=== PATIENT | female | born 1975 | race Caucasian/White ===

== ENCOUNTER 2018-10-20 15:34 | Outpatient (CLI) | payer OTHER ==
[2018-10-20 15:51] LABS: HGB - HEMOGLOBIN 11.6 g/dL (12.0-16.0); MEAN CORPUSCULAR HEMOGLOBIN 32.9 pg (27.0-31.0); MEAN CORPUSCULAR HGB CONC 34.5 g/dL (32.0-36.0); MEAN CORPUSCULAR VOLUME 95.4 fL (81.0-99.0); MEAN PLATELET VOLUME 6.6 fL (7.9-10.8); NEUTROPHILS # (AUTO) 1.7 10^3/uL (1.5-6.6); NEUTROPHILS % (AUTO) 41.6 %; RED BLOOD COUNT 3.51 10^6/uL (4.20-5.40); RED CELL DISTRIBUTION WIDTH 14.3 % (12.0-15.0)
== END 2018-10-20 15:35 | disposition home or self-care (01) ==
LOC: LAB 15:34
DX: D70.9 Neutropenia, unspecified (principal)
CPT/HCPCS: 36415; 85027

== ENCOUNTER 2021-06-13 08:00 | Outpatient (CLI) | payer OTHER ==
[2021-06-13 18:29] LABS: BASOPHILS % (AUTO) 0.3 %; EOSINOPHILS % (AUTO) 0.3 %; HCT - HEMATOCRIT 33.5 % (37.0-47.0); HGB - HEMOGLOBIN 10.9 g/dL (12.0-16.0); LYMPHOCYTES # (AUTO) 0.7 10^3/uL (1.5-3.5); LYMPHOCYTES % (AUTO) 18.3 %; MEAN CORPUSCULAR HEMOGLOBIN 34.4 pg (27.0-31.0); MEAN CORPUSCULAR HGB CONC 32.5 g/dL (32.0-36.0); MEAN CORPUSCULAR VOLUME 105.7 fL (81.0-99.0); MONOCYTES # (AUTO) 0.2 10^3/uL (0.0-1.0); MONOCYTES % (AUTO) 6.4 %; NEUTROPHILS # (AUTO) 2.7 10^3/uL (1.5-6.6); NEUTROPHILS % (AUTO) 73.9 %; PLT - PLATELET COUNT 219 10^3/uL (130-450); RED BLOOD COUNT 3.17 10^6/uL (4.20-5.40); RED CELL DISTRIBUTION WIDTH 14.2 % (12.0-15.0); WHITE BLOOD COUNT 3.6 x10^3/uL (4.8-10.8)
[2021-06-13 18:40] LABS: ALBUMIN 4.2 g/dL (3.2-5.5); ALBUMIN/GLOBULIN RATIO 1.2 (1.0-2.2); CALCIUM 9.4 mg/dL (8.5-10.3); CREATININE 0.8 mg/dL (0.4-1.0); POTASSIUM 3.5 mmol/L (3.5-5.0); TOTAL PROTEIN 7.8 g/dL (6.7-8.2)
[2021-06-13 20:44] LABS: SLIDE REVIEW? Indicated
[2021-06-13 20:46] LABS: PLATELET ESTIMATE, MANUAL NORMAL (130-450,000) (NORMAL); PLATELET MORPHOLOGY NORMAL APPEARANCE (NORMAL); RBC MORPHOLOGY (MULTIPLE) 1+ ANISOCYTOSIS (NORMAL)
== END 2021-06-13 23:59 | disposition home or self-care (01) ==
LOC: LAB.N 08:00
PROVIDERS: ATTEND Family Medicine
DX: R30.0 Dysuria (principal); C50.919 Malignant neoplasm of unspecified site of unspecified female breast
CPT/HCPCS: 36415; 80053; 85025; 87077; 87086; 87181

== ENCOUNTER 2022-01-24 14:32 | Outpatient (CLI) | payer OTHER | END 2022-01-24 14:33 | disposition home or self-care (01) | LOC: LAB.N 14:32 | PROVIDERS: ATTEND Internal Medicine Hematology & Oncology | DX: N39.0 Urinary tract infection, site not specified (principal) | CPT/HCPCS: 87077; 87086; 87181 ==

== ENCOUNTER 2022-02-21 14:43 | Outpatient (CLI) | payer OTHER | END 2022-02-21 14:44 | disposition home or self-care (01) | LOC: LAB.N 14:43 | DX: Z01.812 Encounter for preprocedural laboratory examination (principal); N13.30 Unspecified hydronephrosis; Z20.822 Contact with and (suspected) exposure to COVID-19 ==

== ENCOUNTER 2022-03-23 15:17 | Emergency (ER) | payer OTHER ==
[2022-03-23 15:31] VITALS: BP 148/99
--- NOTE | 2022-03-23 15:50 | ED Physician Documentation ---
History of Present Illness - Stated complaint Stated Complaint: NEED NEPHROSTOMY BAG - Chief complaint Chief Complaint: General - History obtained from History obtained from: Patient - History of Present Illness Timing: Today Pain level max: 0 Pain level now: 0 - Additonal information Additional information: 46-year-old female with a history of breast cancer, has a nephrostomy tube on the right side. The nephrostomy bag is leaking today. They need a new bag placed. No fevers. No chills. No other symptoms. Review of Systems Constitutional: denies: Fever PD PAST MEDICAL HISTORY - Past Medical History Past Medical History: Yes Other Past Medical History: Breast cancer - Past Surgical History Past Surgical History: Yes Other past surgical history: Nephrostomy tube - Allergies Allergies/Adverse Reactions: Allergies Allergy/AdvReac Type Severity Reaction Status Date / Time chlorhexidine Allergy Rash Verified 03/23/22 15:32 - Living Situation Living Situation: reports: With family Living Arrangement: reports: At home - Family History Family history: reports: Non contributory PD ED PE NORMAL - Vitals Vital signs reviewed: Yes - General General: Alert and oriented X 3, No acute distress - HEENT HEENT: Moist mucous membranes - Neck Neck: Supple, no meningeal sign - Cardiac Cardiac: RRR - Respiratory Respiratory: No respiratory distress, Clear bilaterally - Abdomen Abdomen: Soft, Non tender, Non distended, Other (No signs of infection around the nephrostomy tube) - Derm Derm: Warm and dry - Neuro Neuro: Alert and oriented X 3 - Psych Psych: Normal mood, Normal affect Results - Vitals Vitals: Vital Signs - 24 hr 03/23/22 15:26 Temperature 36.1 C L Heart Rate 93 Respiratory 16 Rate Blood Pressure 148/99 H O2 Saturation 100 Oxygen O2 Source Room air PD MEDICAL DECISION MAKING - ED course Complexity details: considered differential, d/w patient, d/w family ED course: Nephrostomy tube bag was changed. No complications. This document was made in part using voice recognition software. While efforts are made to proofread this document, sound alike and grammatical errors may occur. Departure - Departure Disposition: 01 Home, Self Care Clinical Impression: Leakage of nephrostomy catheter, initial encounter Condition: Good Follow-Up: your,doctor as needed [Other] Comments: Please follow-up with your doctor for further care. Discharge Date/Time: 03/23/22 15:58
== END 2022-03-23 15:58 | disposition home or self-care (01) ==
LOC: ED 15:17
DX: T83.032A Leakage of nephrostomy catheter, initial encounter (principal); R39.9 Unspecified symptoms and signs involving the genitourinary system
CPT/HCPCS: 81001; 87086; 99281; 99282

== ENCOUNTER 2022-10-19 14:40 | Emergency (ER) | payer OTHER ==
[2022-10-19 15:20] LABS: BASOPHILS % (AUTO) 0.3 %; EOSINOPHILS # (AUTO) 0.1 10^3/uL (0.0-0.7); EOSINOPHILS % (AUTO) 1.1 %; HGB - HEMOGLOBIN 12.4 g/dL (12.0-16.0); LYMPHOCYTES # (AUTO) 0.6 10^3/uL (1.5-3.5); LYMPHOCYTES % (AUTO) 5.9 %; MEAN CORPUSCULAR HEMOGLOBIN 32.1 pg (27.0-31.0); MEAN CORPUSCULAR HGB CONC 32.6 g/dL (32.0-36.0); MEAN CORPUSCULAR VOLUME 98.4 fL (81.0-99.0); MEAN PLATELET VOLUME 9.3 fL (7.9-10.8); MONOCYTES # (AUTO) 0.7 10^3/uL (0.0-1.0); MONOCYTES % (AUTO) 6.8 %; NEUTROPHILS # (AUTO) 9.2 10^3/uL (1.5-6.6); NEUTROPHILS % (AUTO) 85.6 %; PLT - PLATELET COUNT 256 10^3/uL (130-450); RED BLOOD COUNT 3.86 10^6/uL (4.20-5.40); RED CELL DISTRIBUTION WIDTH 13.5 % (12.0-15.0); WHITE BLOOD COUNT 10.7 x10^3/uL (4.8-10.8)
[2022-10-19 15:31] LABS: ALBUMIN 3.7 g/dL (3.2-5.5); ALBUMIN/GLOBULIN RATIO 0.9 (1.0-2.2); BILIRUBIN,TOTAL 0.8 mg/dL (0.2-1.0); CREATININE 1.5 mg/dL (0.4-1.0); POTASSIUM 3.7 mmol/L (3.5-5.0)
[2022-10-19 16:02] LABS: BILIRUBIN,URINE NEGATIVE (NEGATIVE); GLUCOSE, URINE (UA) NEGATIVE (NEGATIVE); KETONES,URINE (UA) NEGATIVE (NEGATIVE); LEUKOCYTE ESTERASE, URINE MODERATE (NEGATIVE); NITRITE,URINE NEGATIVE (NEGATIVE); OCCULT BLOOD,URINE MODERATE (NEGATIVE); PROTEIN,URINE 30 mg/dL (NEGATIVE); UROBILINOGEN,URINE 0.2 (NORMAL) E.U./dL (NORMAL)
[2022-10-19 16:04] LABS: CLARITY,URINE HAZY (CLEAR); HCG UR QUAL NEGATIVE
[2022-10-19 16:08] LABS: BACTERIA,URINE Few /HPF (None Seen); SQUAMOUS EPITHELIAL CELL,UR FEW Squamous (<= Few); WBC,URINE >25 /HPF (0-5)
[2022-10-19] MEDS ORDERED: SODIUM CHLORIDE 0.9% 1,000 ML IV STA ×2 (17:25→18:52)
--- NOTE | 2022-10-19 17:48 | ED Physician Documentation ---
History of Present Illness - Stated complaint Stated Complaint: BACK PX - Chief complaint Chief Complaint: Abd Pain - Additonal information Additional information: 47-year-old female presents to the emergency department for evaluation of gina ateral flank pain fevers and dysuria. Symptoms began about 5 days ago. She does have a history of breast cancer. She is on oral chemotherapy. 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 Patient states she has had a temperature of 102.6 She reports that her most recent ureter stents were really placed about 2 weeks ago. She is followed by Dr. Barrie Rosas urologist in [place]. Patient is historian. Reliable historian. Review of Systems Constitutional: reports: Fever GI: reports: Abdominal Pain, Nausea, Vomiting, Diarrhea : reports: Dysuria PD PAST MEDICAL HISTORY - Past Surgical History Past Surgical History: Yes - Present Medications Home Medications: Ambulatory Orders Medication Instructions Recorded Confirmed Ciprofloxacin HCl [Cipro] 500 mg PO BID #20 tablet 04/30/22 - Allergies Allergies/Adverse Reactions: Allergies Allergy/AdvReac Type Severity Reaction Status Date / Time chlorhexidine Allergy Rash Verified 10/19/22 15:01 - Social History Does the pt smoke?: No Smoking Status: Never smoker Does the pt drink ETOH?: No Does the pt have substance abuse?: No - Immunizations Immunizations are current?: Yes - POLST Patient has POLST: No PD ED PE NORMAL - General General: Alert and oriented X 3, No acute distress, Well developed/nourished - HEENT HEENT: Atraumatic, Moist mucous membranes - Neck Neck: Supple, no meningeal sign, No adenopathy - Cardiac Cardiac: RRR, No murmur - Respiratory Respiratory: No respiratory distress, Clear bilaterally - Abdomen Abdomen: Normal bowel sounds, Soft, Non tender (Bilateral flank tenderness without guarding or rebound) - Back Back: No CVA TTP, No spinal TTP - Derm Derm: Normal color, Warm and dry, No rash - Extremities Extremities: No deformity, No tenderness to palpate - Neuro Neuro: Alert and oriented X 3, cloth pattern maker 2-12 intact Eye Opening: Spontaneous Motor: Obeys Commands Verbal: Oriented GCS Score: 15 Results - Vitals Vitals: Vital Signs - 24 hr 10/19/22 10/19/2223 15:00 17:43 18:48 Temperature 37.7 C 38.9 C H Heart Rate 84 80 100 Respiratory 16 20 24 Rate Blood Pressure 131/83 H 160/100 H O2 Saturation 96 100 100 10/19/22 19:16 Temperature 38.1 C H Heart Rate Respiratory Rate Blood Pressure O2 Saturation Oxygen O2 Source Room air - Labs Labs: Laboratory Tests 10/19/22 10/19/22 10/19/22 15:13 15:13 15:20 WBC 10.7 RBC 3.86 L Hgb 12.4 Hct 38.0 MCV 98.4 MCH 32.1 H MCHC 32.6 RDW 13.5 Plt Count 256 MPV 9.3 Neut # (Auto) 9.2 H Lymph # (Auto) 0.6 L Davidson # (Auto) 0.7 Eos # (Auto) 0.1 Baso # (Auto) 0.0 Absolute Nucleated RBC 0.00 Nucleated RBC % 0.0 Sodium 134 L Potassium 3.7 Chloride 101 Carbon Dioxide 22 Anion Gap 11.0 BUN 26 H Creatinine 1.5 H Estimated GFR (MDRD) 38 L Glucose 115 H Lactic Acid Calcium 9.0 Total Bilirubin 0.8 AST 66 H ALT 40 Alkaline Phosphatase 180 H Total Protein 8.0 Albumin 3.7 Globulin 4.3 H Albumin/Globulin Ratio 0.9 L Lipase 31 Urine Color YELLOW Urine Clarity HAZY Urine pH 6.0 Ur Specific [place] 1.010 Urine Protein 30 H Urine Glucose (UA) NEGATIVE Urine Ketones NEGATIVE Urine Occult Blood MODERATE H Urine Nitrite NEGATIVE Urine Bilirubin NEGATIVE Urine Urobilinogen 0.2 (NORMAL) Ur Leukocyte Esterase MODERATE H Urine RBC 6-10 H Urine WBC >25 H Ur Squamous Epith Cells FEW Squamous Urine Bacteria Few Ur Microscopic Review INDICATED Urine Culture Comments INDICATED Urine HCG, Qual NEGATIVE SARS-CoV-2 (PCR) 10/19/22 10/19/22 18:06 19:08 WBC RBC Hgb Hct MCV MCH MCHC RDW Plt Count MPV Neut # (Auto) Lymph # (Auto) Davidson # (Auto) Eos # (Auto) Baso # (Auto) Absolute Nucleated RBC Nucleated RBC % Sodium Potassium Chloride Carbon Dioxide Anion Gap BUN Creatinine Estimated GFR (MDRD) Glucose Lactic Acid 1.8 Calcium Total Bilirubin AST ALT Alkaline Phosphatase Total Protein Albumin Globulin Albumin/Globulin Ratio Lipase Urine Color Urine Clarity Urine pH Ur Specific [place] Urine Protein Urine Glucose (UA) Urine Ketones Urine Occult Blood Urine Nitrite Urine Bilirubin Urine Urobilinogen Ur Leukocyte Esterase Urine RBC Urine WBC Ur Squamous Epith Cells Urine Bacteria Ur Microscopic Review Urine Culture Comments Urine HCG, Qual SARS-CoV-2 (PCR) NOT DETECTED - Rads (name of study) cxr Radiology: Final report received (No acute cardiopulmonary process) CT abd w/o Radiology: Final report received (Bilateral ureterovesicular stents are present. Left parapelvic cysts with appearance of mild obstruction. Right kidney demonstrates edema with poor visualization collecting system. Although no gross hydronephrosis is present) PD Medical Decision Making - ED course Complexity details: reviewed results, re-evaluated patient, considered differential, d/w patient ED course: 47-year-old female presents the emergency department for evaluation of 4 to 5 days subjective fevers, dysuria and flank pain. She does have a history of breast cancer with metastasis which subsequently resulted in bilateral ureter obstruction. Subsequently she has required bilateral ureterovesicular stenting through urology in [place]. The stents were recently replaced about 2 weeks ago. On presentation to the emergency department she is modestly afebrile. She has a heart rate of 100 but no hypotension. I did obtain a CBC and electrolytes. There is no leukocytosis. Lactate is not elevated at 1.8. We do note a rise in her BUN and creatinine to 26 and 1.5 compared to 9 and 0.9 in April of this last year. Her urinalysis is consistent with acute infection. Given this I did obtain a CT of the abdomen to evaluate for obstruction. The rise in her BUN and creatinine May be prerenal due to vomiting and diarrhea but could also be postobstructive given recent ureter replacements and stenting. Subsequently the CT shows bilateral ureterovesicular stents that are present. There is no gross hydronephrosis seen in the kidneys. Given the fever and concerns for infection chest x-ray and blood cultures were obtained and are pending. Though per my interpretation of the chest x-ray no acute focal processes. I did administer 2 g of ceftriaxone IV. I also subsequently spoke with the patient's urologist . We thoroughly discussed the Present laboratory findings as well as CT imaging findings. He does not feel that the patient requires emergent transfer for surgical intervention as her stents are not obstructed. He would recommend inpatient admission to this hospital for complicated pyelonephritis. He feels that the stents can be replaced as an outpatient once her infection begins to improve. I subsequently spoke with Dr. Carr the [facility] hospitalist who felt that this patient was not appropriate for admission to [facility] as we have no urology services should her clinical condition deteriorate. Thus we will now search for transfer to an outlying facility with capable services. I have informed the patient and her that there will likely be a delay in transfer given the paucity of beds regionally Spoken with Madai Gee NP at [facility] I have discussed clinical findings as well as CT imaging. She graciously agrees to accept the patient in transfer. I have notified the patient and she is in agreement for transfer. Appropriate [employer] paperwork completed. PCR for COVID-19 is pending 2039: Departure - Departure Disposition: 02 Transfer Acute Care Hosp Clinical Impression: Pyelonephritis, Acquired ureterovesical junction (UVJ) obstruction, Acute kidney injury Infection associated with indwelling ureteral stent Qualifiers: Encounter type: initial encounter Qualified Code(s): T83.592A - Infection and inflammatory reaction due to indwelling ureteral stent, initial encounter
[2022-10-19] MEDS ORDERED: cefTRIAXone 2 GM in SODIUM CHLORIDE 0.9% MINIBAG 100 ML IV STA (18:07)
[2022-10-19] MEDS ORDERED: KETOROLAC 30 MG/ML VIAL IVP STA (18:38)
--- NOTE | 2022-10-19 18:49 | XRAY Report ---
PROCEDURE: Chest 1 View X-Ray INDICATIONS: chest pain TECHNIQUE: One view of the chest was acquired. COMPARISON: None. FINDINGS: Surgical changes and devices: Right Port-A-Cath is present with distal tip projecting over the mid S VC. Lungs and pleura: No pleural effusions or pneumothorax. Lungs are clear. Mediastinum: Mediastinal contours appear normal. Heart size is normal. Bones and chest wall: No suspicious bony lesions. Overlying soft tissues appear unremarkable. IMPRESSION: No acute pulmonary process. Reviewed by: Kim Cazares MD on 10/19/2022 6:48 PM PST Approved by: Kim Cazares MD on 10/19/2022 6:48 PM PST Station ID: [id number]
--- NOTE | 2022-10-19 18:53 | CT Report ---
PROCEDURE: ABDOMEN/PELVIS WO INDICATIONS: ? hydro or stents failed TECHNIQUE: Noncontrast 5 mm thick sections acquired from the diaphragms to the symphysis. 5 mm coronal and sagi ttal reformats were then performed. For radiation dose reduction, the following was used: automated exposure control, adjustment of mA and/or kV according to patient size. COMPARISON: None. FINDINGS: Image quality: Excellent. ABDOMEN: Lung bases: Lung bases are clear. Heart size is normal. Solid organs: Liver and spleen are normal in size. Gallbladder is contracted. Pancreas is normal i n contours. No adrenal nodules. Bilateral ureterovesicular stents are present. There is appearance o f parapelvic cysts identified within the left kidney. However, there also appears to be prominence of the collecting system. Secondary to artifact, the collecting system of the right kidney is poorly vi sualized. Renal edema appears present on the right with atrophy on the left. Peritoneum and bowel: Unenhanced bowel loops demonstrate normal wall thickness and caliber. No free fluid or air. Nodes and vessels: No retroperitoneal or mesenteric adenopathy by size criteria. Aorta and inferior vena cava are normal in caliber. Miscellaneous: No ventral hernias. PELVIS: Genitourinary: Bladder wall thickness is normal. Miscellaneous: No inguinal hernias or adenopathy. Bones: No suspicious bony lesions. No vertebral body compression fractures. IMPRESSION: Bilateral ureterovesicular stents are present. Left parapelvic cysts with appearance of mild obstruction. However, given lack of contrast as well as superimposed parapelvic cysts, ultrasound is recommended for further evaluation. Right kidney demonstrates edema with poor visualization of the collecting system. Although no gross h ydronephrosis is present, collecting system may be obscured by edema. Renal ultrasound is recommended . Reviewed by: Kim Cazares MD on 10/19/2022 6:51 PM PST Approved by: Kim Cazares MD on 10/19/2022 6:51 PM PST Station ID: [id number]
[2022-10-19] MEDS ORDERED: HYDROmorphone 1 MG/ML CARPUJECT IVP STA ×2 (20:45→23:33)
[2022-10-19 22:05] VITALS: BP 159/99
[2022-10-19] MEDS ORDERED: ACETAMINOPHEN 325 MG TABLET PO STA (23:33)
== END 2022-10-20 00:02 | disposition short-term general hospital (02) ==
LOC: ED 14:40
DX: N12 Tubulo-interstitial nephritis, not specified as acute or chronic (principal); N13.5 Crossing vessel and stricture of ureter without hydronephrosis; N17.9 Acute kidney failure, unspecified; T83.592A Infection and inflammatory reaction due to indwelling ureteral stent, initial encounter; C50.919 Malignant neoplasm of unspecified site of unspecified female breast; C79.9 Secondary malignant neoplasm of unspecified site; Z20.822 Contact with and (suspected) exposure to COVID-19
CPT/HCPCS: 36415; 71045; 74176; 80053; 81001; 81025; 83605; 83690; 85025; 87040; 87077; 87086; 87181; 87635; 96365; 96375; 96376; 99285; A9270; J1170; 81003

== ENCOUNTER 2022-10-19 23:45 | Outpatient (CLI) | payer OTHER | END 2022-10-19 23:46 | disposition short-term general hospital (02) | LOC: EMS 23:45 | PROVIDERS: ATTEND Registered Nurse | DX: N12 Tubulo-interstitial nephritis, not specified as acute or chronic (principal); Z96.0 Presence of urogenital implants; C34.90 Malignant neoplasm of unspecified part of unspecified bronchus or lung; C79.9 Secondary malignant neoplasm of unspecified site | CPT/HCPCS: A0425; A0426 ==